=== PATIENT | male | born 1940 | race Two or more races ===

== ENCOUNTER 2021-02-21 12:31 | Inpatient (IN) | payer BC ==
[~2021-02-21] VITALS: Ht 154.9 cm; Wt 74.8 kg
--- NOTE | 2021-02-21 12:42 | NUR ---
URINE SENT TO LAB
--- NOTE | 2021-02-21 12:43 | NUR ---
NO NEED FOR CATHETER. PT URINATED ON HIS OWN
--- NOTE | 2021-02-21 12:44 | NUR ---
YENINFER FROM A PARKING LOT. TO ER BED 5. PT RECEIVED WITH EYES CLOSED BUT RESPONSIVE TO VERBAL STIMULI. BOT IN RESP DISTRESS, BREATHING EVEN AND UNLABORED, ON O2 VIA NC @ 4LPM. PT WAS REPORTED TO BE FOUND SLUMMPED DOWN AND RECEIVED CPR FROM A BYSTANDER. UPON EMS ARRIVAL PULSE WAS APPRECIATED SO EMS DID NOT CONTINUE THE CPR. PT WAS GIVEN NARCAN AND REPOTED TO HAVE AWOKEN. UPON ASSESSNING PT, PT IS ABLE TO FOLLOW COMMANDS AND ANSWER TO QUESTIONS. HE DENIES ANY DRUG NOR MEDICATION USE. PT ARRIVED WITH AN IV ON R AC 18G BY EMS.
[2021-02-21] MEDS ORDERED: MULT-447 PO (12:50)
--- NOTE | 2021-02-21 12:54 | NUR ---
wheeled patient to ct, accompanied by gabi
[2021-02-21] MEDS ORDERED: IV NS 0.9% 1,000 ML BAG IV ONE (13:00)
[2021-02-21 13:05] LABS: BILIRUBIN,URINE NEGATIVE (NEGATIVE); COLOR,URINE YELLOW (YELLOW); LEUKOCYTE ESTERASE ,URINE NEGATIVE (NEGATIVE); NITRITE, URINE NEGATIVE (NEGATIVE); PH,URINE 6.5 (5.0-8.0); PROTEIN,URINE 100 mg/dl (NEGATIVE); UGLUCOSE 250 MG/DL mg/dL (NEGATIVE); UROBILINOGEN,URINE 0.2 EU/dL (0.2)
--- NOTE | 2021-02-21 13:13 | NUR ---
MILDRED SON [phone]
[2021-02-21 13:16] LABS: RBC,URINE 0-2 /HPF (0-2)
[2021-02-21 13:18] LABS: BACTERIA,URINE Few /HPF (None Seen); SQUAMOUS EPITHELIAL CELL,UR Rare /HPF (None Seen)
--- NOTE | 2021-02-21 13:30 | NUR ---
[facility] CALLED TERRAZZO FINISHER PAGED.
--- NOTE | 2021-02-21 13:38 | NUR ---
COVID SWAB DONE AND SENT TO LAB
[2021-02-21 13:50] LABS: BASOPHILS % (AUTO) 0.3 % (0.0-2.0); EOSINOPHILS % (AUTO) 0.8 % (0.0-6.0); HEMATOCRIT 40 % (39-51); HEMOGLOBIN 13.2 g/dL (13.5-17.5); LYMPHOCYTES # (AUTO) 1.9 /CMM (0.8-4.8); LYMPHOCYTES % (AUTO) 15.1 % (20.0-44.0); MEAN CORPUSCULAR HGB CONC 33 g/dl (31.0-36.0); MEAN CORPUSCULAR VOLUME 100 fL (80-96); MONOCYTES # (AUTO) 0.8 /CMM (0.1-1.30); MONOCYTES % (AUTO) 6.2 % (2.0-12.0); NEUTROPHILS # (AUTO) 9.8 /CMM (1.8-8.9); NEUTROPHILS % (AUTO) 77.6 % (43.0-81.0); PLATELET COUNT (AUTO) 195 /CMM (150-450); RED BLOOD CELL COUNT(AUTO) 3.98 MIL/uL (4.5-6.0); WHITE BLOOD COUNT (AUTO) 12.7 K/uL (4.3-11.0)
--- NOTE | 2021-02-21 13:56 | NUR ---
[facility] CALLED GENERAL MANAGER FARM PAGED. X 2
[2021-02-21 14:01] LABS: CALCIUM, SERUM 7.9 mg/dL (8.5-10.1); CARBON DIOXIDE 25 mmol/L (21-32); CHLORIDE 108 mmol/L (98-107); GLUCOSE 227 mg/dL (74-106); POTASSIUM 3.5 mmol/L (3.5-5.1); SODIUM SERUM 141 mmol/L (136-145); UREA NITROGEN, BLOOD 12 mg/dL (7-18)
[2021-02-21 14:07] LABS: ALANINE AMINOTRANSFERASE 23 U/L (12-78); ALBUMIN 3.2 g/dL (3.4-5.0); ALKALINE PHOSPHATASE 80 U/L (46-116); ASPARTATE AMINOTRANSFERASE 17 U/L (15-37); BILIRUBIN,DIRECT 0.1 mg/dL (0.0-0.2); BILIRUBIN,TOTAL 0.3 mg/dL (0.2-1.0); TOTAL PROTEIN, SERUM 6.2 g/dL (6.4-8.2)
[2021-02-21 14:09] LABS: ACETAMINOPHEN 0 ug/ml (10-30)
[2021-02-21 14:10] LABS: ALCOHOL, BLOOD < 3 mg/dL (0-0)
[2021-02-21 14:14] LABS: THYROID STIMULATING HORMONE 2.101 uIU/mL (0.358-3.74)
--- NOTE | 2021-02-21 14:27 | NUR ---
LAB CALLED AND NEGATIVE FOR COVID
[2021-02-21] MEDS ORDERED: MAGNESIUM HYDROXIDE 30 ML UDC PO PRN (14:30)
[2021-02-21] MEDS ORDERED: MAG HYDROX/AL HYDROX/SIMETH 30 ML UDC PO PRN (14:30)
[2021-02-21] MEDS ORDERED: Z GUARD REMEDY 2 OZ OINT TP PRN (14:30)
[2021-02-21] MEDS ORDERED: ZOLPIDEM TARTRATE 5 MG TABLET PO PRN (14:30)
[2021-02-21] MEDS ORDERED: ACETAMINOPHEN 325 MG TABLET ONE (14:38)
[2021-02-21] MEDS ORDERED: ONDANSETRON HCL/PF 4 MG/2 ML VIAL ONE (14:38)
[2021-02-21] MEDS: ONDANSETRON HCL/PF 4 MG/2 ML VIAL IVP PRN (14:43)
[2021-02-21] MEDS: ACETAMINOPHEN 325 MG TABLET PO PRN (15:06)
--- NOTE | 2021-02-21 15:10 | NUR ---
US AT BEDSIDE
--- NOTE | 2021-02-21 15:20 | NUR ---
REPORT GIVEN TO SUNIL HERRON FOR MARIANA
--- NOTE | 2021-02-21 15:53 | NUR ---
PT TRANSPORTED TO UNIT ON GURNEY WITH EMT AND RN AT BEDSIDE W/ ACLS PROTOCOL. NAD NOTED DURING TRANSPORT.
[2021-02-21 16:00] VITALS: BP 116/70
--- NOTE | 2021-02-21 18:21 | NUR ---
RN CLOSING NOTE PATIENT RESTING IN BED, REMAINS AO X 4, DOES NO APPEARS DISTRESS OR DISCOMFORT. SKIN IS WARM TOUCH, KEEP CLEAN/DRY. RESPIRATORY EVEN AND UNLABORED IN ROOM AIR O2SAT 97% BUT FAMILY MEMBER REQUESTED PUT ON OXYGEN, PATIENT IS ON OXYGEN AT 1LPM. KEPT ELEVATED HOB FOR ENSURE AIRWAY AND ASPIRATION PRECAUTION, ALSO LOWEST BED POSITION FOR SAFETY. CALL LIGHT WITHIN REACH, WILL ENDORSE SHERIFF DEPUTY.
--- NOTE | 2021-02-21 19:18 | NUR ---
PATIENT NOTICED FEW BACTERIA FROM URINE, LEFT MASSAGE TO MD.
--- NOTE | 2021-02-21 19:31 | NUR ---
PACS SPECIALIST NOTES PATIENT RESTING IN BED, AO X 4, DOES NO APPEARS DISTRESS OR DISCOMFORT. SKIN IS WARM TOUCH, KEEP CLEAN/DRY. RESPIRATORY EVEN AND UNLABORED ON 1L VIA NASAL CANNULA O2SAT 97% KEPT ELEVATED HOB FOR ENSURE AIRWAY AND ASPIRATION PRECAUTION, ALSO LOWEST BED POSITION FOR SAFETY. CALL LIGHT WITHIN REACH, WILL CONTINUE TO MONITOR.
[2021-02-21 20:23] VITALS: BP 112/61
[2021-02-22 00:12] VITALS: BP 115/61
[2021-02-22 05:21] VITALS: BP 128/86
--- NOTE | 2021-02-22 06:45 | NUR ---
TANNING DRUM OPERATOR NOTES PATIENT RESTING IN BED, AO X 4, DOES NO APPEARS DISTRESS OR DISCOMFORT. SKIN IS WARM TOUCH, KEEP CLEAN/DRY AT ALL TIMES. RESPIRATORY EVEN AND UNLABORED ON 1L VIA NASAL CANNULA O2SAT 97% KEPT ELEVATED HOB FOR ENSURE AIRWAY AND ASPIRATION PRECAUTION, ALSO LOWEST BED POSITION FOR SAFETY. CALL LIGHT WITHIN REACH, WILL ENDORSE CARE TO DAY SHIFT.
[2021-02-22 06:58] LABS: BASOPHILS % (AUTO) 0.4 % (0.0-2.0); EOSINOPHILS % (AUTO) 0.6 % (0.0-6.0); HEMATOCRIT 40 % (39-51); HEMOGLOBIN 13.6 g/dL (13.5-17.5); LYMPHOCYTES # (AUTO) 1.6 /CMM (0.8-4.8); LYMPHOCYTES % (AUTO) 17.1 % (20.0-44.0); MEAN CORPUSCULAR HGB CONC 34 g/dl (31.0-36.0); MEAN CORPUSCULAR VOLUME 98 fL (80-96); MONOCYTES % (AUTO) 10.6 % (2.0-12.0); NEUTROPHILS # (AUTO) 6.8 /CMM (1.8-8.9); NEUTROPHILS % (AUTO) 71.3 % (43.0-81.0); PLATELET COUNT (AUTO) 210 /CMM (150-450); WHITE BLOOD COUNT (AUTO) 9.5 K/uL (4.3-11.0)
[2021-02-22 07:27] LABS: CALCIUM, SERUM 8.3 mg/dL (8.5-10.1); CREATININE 0.9 mg/dL (0.6-1.3); MAGNESIUM 2.1 mg/dL (1.8-2.4); PHOSPHORUS 3.9 mg/dL (2.5-4.9); POTASSIUM 4.2 mmol/L (3.5-5.1)
[2021-02-22 07:38] LABS: THYROID STIMULATING HORMONE 1.248 uIU/mL (0.358-3.74)
[2021-02-22] MEDS: PANTOPRAZOLE 40 MG TABLET.DR PO SCH (07:52)
--- NOTE | 2021-02-22 08:00 | NUR ---
HOSPICE DIRECTOR OPENING NOTES RECEIVED PATIENT AWAKE AND RESTING IN BED, BELARUSIAN SPEAKING. PT SHOWS NO SIGNS OF SOB PATIENT IS STABLE ON NC 1 LPM PATIENT IS SINUS RHYTMN 82 RIGHT FOREARM . RAC G#18 . SAFETY MEASURES IN PLACE, CALL LIGHT AND TABLE WITHIN REACH, SIDE RAILS UP X 2, HOB ELEVATED, BED ALARM ON. WILL CONTINUE TO MONITOR.
[2021-02-22 08:26] VITALS: BP 127/81
[2021-02-22] MEDS: ENOXAPARIN SODIUM 40 MG/0.4 ML DISP.SYRIN SQ SCH (09:48)
[2021-02-22] MEDS: ONDANSETRON HCL/PF 4 MG/2 ML VIAL IVP PRN (09:57)
--- NOTE | 2021-02-22 09:57 | NUR ---
PT C/O NAUSEA , PER PT REQUESTED NAUSEA MEDICATION. ZOFRAN 4MG/2ML IV Addendum: 02/22/21 at 1013 by BHAVNA NAZARIO RN PT C/O NAUSEA , PER PT REQUESTED NAUSEA MEDICATION. ZOFRAN 4MG/2ML IV GIVEN AT THIS TIME, PT TOLERATED WELL. WILL CONTINUE TO MONITOR
--- NOTE | 2021-02-22 11:39 | NUR ---
PT TRANSPORTED FOR MRI IN STABLE CONDITION
[2021-02-22] MEDS: IV NS 0.9% 1,000 ML IV PRN ×2 (14:12→23:50)
--- NOTE | 2021-02-22 15:55 | NUR ---
Import Specialist note: product manager financial services consult request received. SS will follow up at a later time.
[2021-02-22 16:27] VITALS: BP 127/72
--- NOTE | 2021-02-22 17:45 | NUR ---
EEG WAS DONE, PT TOLERATED WELL
--- NOTE | 2021-02-22 17:51 | NUR ---
RN MIDWIFE CLOSING NOTES PT AWAKE IN BED AT THIS TIME. PT REMAINED STABLE THROUGHOUT SHIFT. PT KEPT CLEAN AND DRY.PT ENCOURAGED TO REPOSITION EVERY TWO HOURS. IV ACCESS RAC G#18 NS AT 125ML/HR INTACT, PATENT AND FLUSHING WELL.SAFETY PRECAUTIONS IN PLACE AND MAINTAINED AT ALL TIMES. BED IN LOWEST LOCKED POSITION, HOB ELEVATED, SIDE RAILS UP X 2. CALL LIGHT AND TABLE WITHIN REACH. WILL ENDORSE TO TRAINING ADMINISTRATOR NURSE FOR MARIANA
--- NOTE | 2021-02-22 18:52 | NUR ---
PT C/O NO BOWEL MOVEMENT FOR 3 DAYS PER PT REQUEST MILK OF MAGNESIUM 30ML/1 UNIT DOSE PO ADMINISTERED AT THIS TIME. WILL CONTINUE TO MONITOR Addendum: 02/22/21 at 1916 by BHAVNA NAZARIO RN PT C/O NO BOWEL MOVEMENT FOR 3 DAYS PER PT REQUEST MILK OF MAGNESIUM 30ML/1 UNIT DOSE PO ADMINISTERED AT THIS TIME. WILL CONTINUE TO MONITOR
--- NOTE | 2021-02-22 19:58 | NUR ---
MS/TELE/RN RECEIVED PATIENT IN THE ROOM LYING IN BED AWAKE, ALERT, ORIENTED, COMFORTABLE, NO C/O PAIN, NO DISTRESS NOTED, FALL PRECAUTIONS PER PROTOCOL, CALL LIGHT IN REACH, WILL MONITOR.
[2021-02-22 20:00] VITALS: BP_SYST 116; BP_SYST 126; BP_SYST 128; BP_DIAS 70; BP_DIAS 72; BP_DIAS 76
--- NOTE | 2021-02-22 22:41 | NUR ---
MS/TELE/RN PATIENT IS SLEEPING AT THIS TIME, APPEAR COMFORTABLE, NO DISTRESS NOTED, CALL LIGHT IN REACH, WILL CONTINUE TO MONITOR.
[2021-02-23] VITALS: BP 115/66
[2021-02-23 04:00] VITALS: BP 115/71
[2021-02-23] MEDS: ACETAMINOPHEN 325 MG TABLET PO PRN (04:32)
--- NOTE | 2021-02-23 04:38 | NUR ---
MS/TELE/RN C/O HEADACHE, TYLENOL 650 MG PO WAS GIVEN ORDERED. WILL MONITOR.
--- NOTE | 2021-02-23 06:17 | NUR ---
MS/TELE/RN PATIENT IS STILL SLEEPING AT THIS TIME, APPEAR COMFORTABLE, NO SIGNS OF DISTRESS NOTED, ALL NEEDS ATTENDED AT THIS TIME, WILL CONTINUE TO MONITOR.
[2021-02-23 06:32] LABS: BASOPHILS # (AUTO) 0.1 /CMM (0.0-0.2); BASOPHILS % (AUTO) 0.9 % (0.0-2.0); EOSINOPHILS % (AUTO) 3.6 % (0.0-6.0); HEMATOCRIT 38 % (39-51); HEMOGLOBIN 12.8 g/dL (13.5-17.5); LYMPHOCYTES % (AUTO) 14.6 % (20.0-44.0); MEAN CORPUSCULAR HGB CONC 34 g/dl (31.0-36.0); MEAN CORPUSCULAR VOLUME 99 fL (80-96); MONOCYTES # (AUTO) 0.6 /CMM (0.1-1.30); MONOCYTES % (AUTO) 8.8 % (2.0-12.0); NEUTROPHILS # (AUTO) 4.9 /CMM (1.8-8.9); NEUTROPHILS % (AUTO) 72.1 % (43.0-81.0); PLATELET COUNT (AUTO) 187 /CMM (150-450); RED BLOOD CELL COUNT(AUTO) 3.81 MIL/uL (4.5-6.0); WHITE BLOOD COUNT (AUTO) 6.8 K/uL (4.3-11.0)
[2021-02-23 07:07] LABS: ALANINE AMINOTRANSFERASE 24 U/L (12-78); ALBUMIN 3.1 g/dL (3.4-5.0); ALKALINE PHOSPHATASE 68 U/L (46-116); ASPARTATE AMINOTRANSFERASE 20 U/L (15-37); BILIRUBIN,TOTAL 0.6 mg/dL (0.2-1.0); CALCIUM, SERUM 8.1 mg/dL (8.5-10.1); CARBON DIOXIDE 29 mmol/L (21-32); CHLORIDE 106 mmol/L (98-107); CREATININE 0.8 mg/dL (0.6-1.3); GLUCOSE 105 mg/dL (74-106); MAGNESIUM 2.1 mg/dL (1.8-2.4); PHOSPHORUS 2.4 mg/dL (2.5-4.9); POTASSIUM 4.2 mmol/L (3.5-5.1); SODIUM SERUM 141 mmol/L (136-145); TOTAL PROTEIN, SERUM 6.2 g/dL (6.4-8.2); UREA NITROGEN, BLOOD 12 mg/dL (7-18)
[2021-02-23 08:00] VITALS: BP 148/74
[2021-02-23] MEDS ORDERED: FUROSEMIDE 20 MG/2 ML VIAL IV ONE (08:00)
--- NOTE | 2021-02-23 08:00 | NUR ---
RN OPENING NOTE PT AWAKE IN BED RESTING. A/OX4 AND PERSIAN SPEAKING. NO COMPLAINT OF PAIN OR NAUSEA. CURRENTLY ON 2L NC WITH NO SOB OR RESPIRATORY DISTRESS PRESENT. ON EXTERNAL TELECOMMUNICATIONS FIELD TECHNICIAN. NO EDEMA PRESENT. PT IS SELF AMBULATORY WITH URINAL AT THE BEDSIDE. SKIN IS INTACT. IV PRESENT ON R AC 18 AND FLUSHES WELL. SAFETY MEASURES IN PLACE. SIDE RAILS RAISED. BED LOWERED. CALL LIGHT WITHIN REACH. WILL CONTINUE TO MONITOR.
[2021-02-23] MEDS: PANTOPRAZOLE 40 MG TABLET.DR PO SCH (08:55)
[2021-02-23] MEDS: ENOXAPARIN SODIUM 40 MG/0.4 ML DISP.SYRIN SQ SCH (08:57)
[2021-02-23] MEDS ORDERED: CT SWABBABLE VALVE TRANS SET 1 EA INFUS.SET MC ONE (10:29)
[2021-02-23] MEDS ORDERED: IOHEXOL-350 100 ML VIAL IV ONE (10:29)
[2021-02-23] MEDS ORDERED: METOPROLOL TARTRATE INJ 5 MG/5 ML AMPUL ONE (10:29)
[2021-02-23] MEDS ORDERED: NITROGLYCERIN 0.4 MG/TAB BOTTLE ONE (10:29)
--- NOTE | 2021-02-23 10:29 | NUR ---
RN NOTE PT LEFT ROOM FOR CTCA. CONSENTS IN CHART. 18G IV PRESENT.
[2021-02-23] MEDS ORDERED: K PHOS NEUTRAL 250 MG TABLET PO ONE ×2 (10:30→15:30)
[2021-02-23] MEDS ORDERED: IV NS 0.9% 250 ML IV ONE (10:30)
[2021-02-23] MEDS: METOPROLOL TARTRATE INJ 5 MG/5 ML AMPUL IVP PRN ×3 (10:55→11:05)
[2021-02-23] MEDS ORDERED: NITROGLYCERIN 0.4 MG/TAB BOTTLE SL ONE (11:00)
--- NOTE | 2021-02-23 11:30 | NUR ---
Report given to SUNIL Yu for continuity of care. Transported back to [place] [address] via wheelchair and remains in stable condition.
[2021-02-23 12:00] VITALS: BP 135/76
[2021-02-23] MEDS: HYDROCODONE/APAP 5/325MG TABLET PO PRN ×2 (13:47→19:06)
[2021-02-23 16:00] VITALS: BP 130/72
--- NOTE | 2021-02-23 18:30 | NUR ---
RN CLOSING NOTE PT AWAKE IN BED RESTING. A/OX4 AND KOREAN SPEAKING. NO COMPLAINT OF PAIN OR NAUSEA. CURRENTLY ON 2L NC WITH NO SOB OR RESPIRATORY DISTRESS PRESENT. ON EXTERNAL EGG WORKER. NO EDEMA PRESENT. PT IS SELF AMBULATORY WITH URINAL AT THE BEDSIDE. SKIN IS INTACT. IV PRESENT ON R AC 18 AND FLUSHES WELL. ROUTINE MEDS GIVEN. SAFETY MEASURES IN PLACE. SIDE RAILS RAISED. BED LOWERED. CALL LIGHT WITHIN REACH. REPORT TO BE GIVEN TO NIGHT NURSE FOR MARIANA.
--- NOTE | 2021-02-23 20:00 | NUR ---
MS/TELE/RN PATIENT IS IN ROOM LYING IN BED AWAKE, ALERT, COMFORTABLE, NO C/O PAIN, NO DISTRESS NOTED, CALL LIGHT IN REACH. WILL MONITOR.
[2021-02-23 20:56] VITALS: BP 106/67
[2021-02-24 00:03] VITALS: BP 122/70
--- NOTE | 2021-02-24 01:07 | NUR ---
MS/TELE/RN PATIENT IS SLEEPING AT THIS TIME, APPEAR COMFORTABLE, NO SIGNS OF DISTRESS NOTED, CALL LIGHT IN REACH, WILL CONTINUE TO MONITOR.
[2021-02-24 04:11] VITALS: BP 124/72
[2021-02-24 06:13] LABS: BASOPHILS # (AUTO) 0.1 /CMM (0.0-0.2); BASOPHILS % (AUTO) 0.8 % (0.0-2.0); EOSINOPHILS % (AUTO) 4.3 % (0.0-6.0); HEMATOCRIT 37 % (39-51); HEMOGLOBIN 12.8 g/dL (13.5-17.5); LYMPHOCYTES # (AUTO) 1.5 /CMM (0.8-4.8); LYMPHOCYTES % (AUTO) 22.8 % (20.0-44.0); MEAN CORPUSCULAR HGB CONC 34 g/dl (31.0-36.0); MEAN CORPUSCULAR VOLUME 98 fL (80-96); MONOCYTES # (AUTO) 0.7 /CMM (0.1-1.30); MONOCYTES % (AUTO) 10.5 % (2.0-12.0); NEUTROPHILS % (AUTO) 61.6 % (43.0-81.0); PLATELET COUNT (AUTO) 189 /CMM (150-450); RED BLOOD CELL COUNT(AUTO) 3.81 MIL/uL (4.5-6.0); WHITE BLOOD COUNT (AUTO) 6.5 K/uL (4.3-11.0)
[2021-02-24 06:49] LABS: CALCIUM, SERUM 8.2 mg/dL (8.5-10.1); CREATININE 0.6 mg/dL (0.6-1.3); PHOSPHORUS 3.3 mg/dL (2.5-4.9); POTASSIUM 3.7 mmol/L (3.5-5.1)
--- NOTE | 2021-02-24 07:30 | NUR ---
DR. ROLAND IN NOTE IN CHART.
[2021-02-24 08:00] VITALS: BP 135/68
--- NOTE | 2021-02-24 08:00 | NUR ---
RECEIVED PT. IN AM ALERT AND ORIENTED X4.DR. MATA HERE AND INFORMED FREQ. PVC'S.CHEST PAIN.STATES PAIN IS FROM HAVING CPR.PLANS FOR DC TODAY.
[2021-02-24] MEDS: PANTOPRAZOLE 40 MG TABLET.DR PO SCH (09:41)
[2021-02-24] MEDS: ENOXAPARIN SODIUM 40 MG/0.4 ML DISP.SYRIN SQ SCH (09:41)
[2021-02-24 12:00] VITALS: BP 109/69
--- NOTE | 2021-02-24 13:00 | NUR ---
TELE OFF,HEP LOCK OUT.
--- NOTE | 2021-02-24 13:30 | NUR ---
WITH QUANTITATIVE STRATEGY ANALYST DC INSTRUCTIONS GIVEN.
[2021-02-24] MEDS: HYDROCODONE/APAP 5/325MG TABLET PO PRN (13:32)
--- NOTE | 2021-02-24 13:51 | NUR ---
GIVEN NORCO FOR CHEST PAIN.MD STATES PAIN FROM CPR PROCEDURE.
--- NOTE | 2021-02-24 14:05 | NUR ---
LUPE. HERE AND GIVEN ALL PAPERWORK WITH BELONGINGS.TAKEN TO LOBBY VIA W/C ACC.BY AINSLEY AND LUPE.
--- NOTE | 2021-02-24 14:29 | NUR ---
SS consult: SS Consult requested for safe discharge planning. The pt. is a 80-year-old male who was found with altered mental status at a store parking lot. SW met with pt. bedside. The pt. stated that he went to work and wasnt feeling too good and that the last that he remembers. The pt.'s nurse, had SW translate to pt. that per medical records, the pt. was dehydrated, has poor nutritional intake and his blood sugar levels were slightly elevated. Per nursing, SW also informed pt. that his chest hurts from CPR chest compressions and he may take Tylenol and Pt. should see his PCP within 1 week. Pt. expressed understanding and was agreeable. SW explored pt.s living situation. Pt. states he lives at [[id number] [place] [address]; [phone]] with , Christin Thakkar [phone] and daughter. Pt. states he works at 7 am and doesnt eat until he gets home from work. SW encouraged pt. to eat and drink water regularly. Pt. states he will follow MD recommendations. Pt.s PCP IS Kolby Herron [phone]. Pt. was discharge and pt.s daughter picked up the pt. who will return to home with . AKOSUA provided pt. with senior resources and pt. accepted them: ABUSE PREVENTION: ELDER ABUSE HOTLINE (10/04) ADULT PROTECTIVE SERVICES HOTLINE LONG-TERM CARE [facility] AREA ON AGING (HOTLINE) ADULT DAY HEALTH CARE CARE CENTERS: Private pay or Medi-kim funded adult day care [facility] , [facility] Services , [facility] Adult Care Center , [facility] Adult Day Health Care , [facility] Adult Day Health Care , [facility] Adult Daycare Center , Needles ONE Generation Center , [facility] , [place] ALZHEIMERS DISEASE/DEMENTIA: Alzheimers Association Helpline [facility] Chapter www.alz.org/[facility] Department of Aging www.lacity.org Family Caregiver [place] www.caregiver.org [place] Caregiver Resources Center/Family Support www.[facility].org CANCER RESOURCES: [place] Cancer Society www.cancer.org Cancer Support Community www.CancerSupportVvsb.org: CancerCare www.cancercare.org [facility] Cancer Support Center www.[facility].org CRITICAL ACCESS HOSPITAL HEALTH ASSOCIATIONS: AARP www.aarp.org ALS Association (ask for Aicha) www.als.org [place] Diabetes Association www.diabetes.org Singapore[place] Heart Association www.heart.org Singaporean Lung Association www.lungusa.org Singaporean Parkinson Disease Association www.apdaparkinson.org Singaporean Manuel Garcia , www.redcross.org Arthritis Foundation www.arthritis.org Crohns & Colitis Foundation of Singaporean www.ccfa.org/chapters/geoffrey National Multiple Sclerosis Society www.nationalmssociety.org Myasthenia Gravis Foundation www.myasthenia-ca.org National Stroke Association www.stroke.org CONSERVATORSHIP & GUARDIANSHIP: AARP Janelle Taylor Legal Services Center for Health Care Rights Eldercare Information and Referral Propeller Driven Airplane Mechanic Foundation [facility]: [facility] Bar Referral Service [facility] Legal Services Office of the Public Guardian [place] EYESIGHT DISORDER RESOURCES: [place] Macular Degeneration Foundation [facility] www.[facility].org GRIEF AND BEREAVEMENT RESOURCES: The [place] , [facility] THE DRIFTWOOD Connection , [facility] , [place] HEARING DISORDER RESOURCES: [place] Telephone Access Program Deaf and Disabled Telecommunications Program www.ddtp.cpu.ca.gov HearRx Hearing Centers ([place]) Better Hearing Systems , [place] GLAD ([facility] Agency on Deafness) V/ TTY; Electronic Calibration Technician , [facility] Hearing [facility] -low income hearing aid assistance www.select medical trihealth rehabilitation hospitalringfoundation.org [place] [facility] , Alejandra HELP AT HOME CAREGIVER SUPPORT: In Home Support Services (Must have Medi-Kim to be eligible) *Ask for a list of agencies that provide services to assist with care in the home. Local Senior Centers also have listings of care providers. HOME SAFETY MODIFICATIONS AND EQUIPMENT: Senior centers have additional referrals. [place] Housing and Community Investment Dept. Handyworker Program (low income) or Visit http://hcidla.[facility].org/cpm-ijtexy-yz for more information National Seating and Mobility and/or ; Forever Active www.Spins.FMverAd Infuse.5th Finger Stay Home Safe www.Stayhomesafe.5th Finger LIFE ALERT RESPONSE SYSTEM: Vivorte Services 154-169-2011 www. Shopatron Life Alert 895-841-6021 www.Unbxd Life Station 940-658-6716 www.Epigamiation.5th Finger Safe Return 116-944-6285 www.alz.or/safereturn Cell Phones for Seniors www.Ecologic Brands MEALS AND FOOD PROGRAMS: Dg Meals on Wheels [phone] [place] Meals on Wheels [phone] [facility] [phone] [place] to the Homebound [phone] [place] to the Homebound [phone] [facility] to the Homebound [phone] [facility] to the Homebound [phone] Kai Aly Champagne [phone] [facility] [phone] ONE Generation [phone] [facility] [phone] [facility] [phone] Meals on Wheels [phone] For all ages: $6.85/ meal w side. Delivered M-F from 10 am-1pm. Application and payment is done over the phone. Frozen meals available for weekends. Emergency Food [facility] [phone] [facility] Valuation Consultant [phone] [facility] [phone] [facility]- Brown bag lunches [phone] [facility] [phone] MEAL/GROCERY DELIVERY PROGRAMS: Daniella [facility] Clare Gourmet Meals [phone]- [facility] [phone]- [facility] Magic Kitchen [phone] Moms Meals [phone] (ask Martins for Discount Select grocery stores may provide delivery. MEDICAL INSURANCE SUPPORT SERVICES: Center for Health Care Rights [phone] Health Insurance Counseling/Advocacy Programs (HICAP)-Must have Medicare. Offers counseling for Medi-Kim eligibility [phone] Department of Public Valuation Consultant [phone] www.[facility].ca.gov Medicare [phone] www.socialsecurity.org Social Security [phone] SENIOR ACTIVITY PROGRAMS: *Contact a local senior center, adult school, recreation facility or community college for education, fitness, recreation, and social programs. Aquatic Therapy and Adapted Exercise programs through [facility] [phone] Encore at [facility] [phone] www.[facility]/encore U- Senior Friends [phone] [place] Senior Programs [phone] www.oasisnet.org Suddenly 65 www.tctthxfu54.5th Finger SENIOR CENTERS: [facility] [phone] [facility] [phone] [facility] [phone] [facility] [phone] [facility] [phone] [facility] [phone] [facility] [phone] [facility] Association [phone] One [facility] [phone] [facility] [phone] [phone] [facility] [phone] [facility] [phone] TRANSPORTATION: Local [facility] may have applications for transportation programs and additional resources. ACCESS Services [phone] Transportation for seniors and disabled persons 7 days a week requiring 254 hr. advance reservation. Must apply and register for program alex eligible. CITY RIDE 844-061-8834 or [phone] Transportation for seniors and persons with ADA card/metro disabled card in the [facility]. M-F only. Must register for services. ONE GENERATION [phone] Serves 65 years + in conjunction with city ride program. Must be registered with both programs. A to B Transport [phone] Provides wheelchair/gurney van service. Adult Medical Transport [phone] Accepts [facility] with prior authorization. Care Van [phone] Provides wheelchair Transport. [facility] Wide Transportation [phone] Provides gurney service Gentle Care [phone] Gurney Transport. All Town Transportation [phone] wheelchair & gurney transport D Transportation [phone] wheelchair & gurney transport [place] Non-Emergency Transport [phone] wheelchair & gurney transport Independent Living Center [phone] Short Term Transportation primarily for adults with disabilities on social security income. Nominal fee may apply and a reservation is required. [facility] Cab [phone] or [phone] [facility] [phone] [place] [address] Services -[phone] For additional programs & services VETERANS RESOURCES: Submissions for Aid and Attendance should be done directly to Federal VA office locatd at : [address] [facility] [phone] National Caregiver Support Line [phone] Kim [facility] Veterans Services Field Office [phone] [place] Department of Affairs [phone] Pension Information [phone]
== END 2021-02-24 14:10 | disposition home or self-care (01) | DRG 48 ==
LOC: EDBD 12:34 → ER 12:34 → TELE 14:52
PROVIDERS: ADMIT Nurse Practitioner Family; ATTEND Nurse Practitioner Acute Care
DX: G90.8 Other disorders of autonomic nervous system (principal); G93.41 Metabolic encephalopathy; E11.65 Type 2 diabetes mellitus with hyperglycemia; E87.70 Fluid overload, unspecified; E44.1 Mild protein-calorie malnutrition; Z86.74 Personal history of sudden cardiac arrest; Z20.822 Contact with and (suspected) exposure to COVID-19; D72.828 Other elevated white blood cell count; E83.39 Other disorders of phosphorus metabolism; D50.9 Iron deficiency anemia, unspecified; R07.89 Other chest pain
CPT/HCPCS: 36415; 70450-TC; 70551-TC; 71045-TC; 71100-TC; 75574; 80048-TC; 80053-TC; 80061-TC; 80076-TC; 81001; 83540-TC; 83735-TC; 84100-TC; 84439-TC; 84443-TC; 84484-TC; 85025-TC; 87081-TC; 92526; 92611-TC; 93307-TC; 93880-TC; 95819-TC; 97116-TC; 97530-TC; C9803; G0378; G0480; J1650; J1940; J2405; J3490; J7030; J7050; Q9967